=== PATIENT | female | born 2000 | race Two or more races ===

== ENCOUNTER 2022-01-08 09:28 | Day surgery (SDC) | payer OTHER | END 2022-01-08 16:15 | disposition home or self-care (01) | LOC: CIR.AMB 09:28 → O/R 10:00 → CIR.AMB 16:15 | PROVIDERS: ATTEND Orthopaedic Surgery Hand Surgery | DX: S62.325A Displaced fracture of shaft of fourth metacarpal bone, left hand, initial encounter for closed fracture (principal); S62.523A Displaced fracture of distal phalanx of unspecified thumb, initial encounter for closed fracture; Z20.822 Contact with and (suspected) exposure to COVID-19 ==

== ENCOUNTER 2023-01-21 06:07 | Day surgery (SDC) | payer OTHER | END 2023-01-21 15:10 | disposition home or self-care (01) | LOC: CIR.AMB 06:07 | PROVIDERS: ATTEND Orthopaedic Surgery Hand Surgery | DX: S62.393A Other fracture of third metacarpal bone, left hand, initial encounter for closed fracture (principal); S62.395A Other fracture of fourth metacarpal bone, left hand, initial encounter for closed fracture; T84.89XA Other specified complication of internal orthopedic prosthetic devices, implants and grafts, initial encounter; M20.092 Other deformity of left finger(s); E11.9 Type 2 diabetes mellitus without complications; E78.00 Pure hypercholesterolemia, unspecified; E78.3 Hyperchylomicronemia; Z20.822 Contact with and (suspected) exposure to COVID-19 ==